=== PATIENT | female | born 1980 | race Caucasian/White ===

== ENCOUNTER 2017-09-22 16:49 | Outpatient (CLI) | payer OTHER ==
--- NOTE | 2017-09-22 17:36 | RAD ---
3 VIEWS LUMBAR SPINE: Date: 09/22/17 HISTORY: Low back pain. Fall from standing. FINDINGS: Grade II anterolisthesis of L5 upon S1. Associated spondylolysis. Five lumbar-type vertebral bodies. Lumbar spine vertebral body height is maintained. Disc space height is preserved. IMPRESSION: Spondylolisthesis and spondylolysis at L5-S1. POS: [facility]
== END 2017-09-22 16:50 | disposition home or self-care (01) ==
LOC: MADLABBHPM 16:49
PROVIDERS: ATTEND Family Medicine
DX: M47.27 Other spondylosis with radiculopathy, lumbosacral region (principal); M43.17 Spondylolisthesis, lumbosacral region; N89.8 Other specified noninflammatory disorders of vagina
CPT/HCPCS: 72100; 87480; 87510; 87660

== ENCOUNTER 2018-06-09 12:13 | Outpatient (CLI) | payer OTHER ==
--- NOTE | 2018-06-09 13:55 | ULT ---
PELVIC ULTRASOUND WITH DOPPLER: HISTORY: Irregular menses. Patient not on hormonal replacement or oral contraception medication. TECHNIQUE: Transabdominal, transvaginal, chery-scale, color-flow, and spectral Doppler. FINDINGS: The uterus measures 8.3 x 3 x 5 cm without focal mass or endometrial fluid. The endometrium measures 4 mm in thickness. The right ovary measures 3.7 x 1.7 x 1.6 cm, and the left ovary measures 3.1 x 1.3 x 1.7 cm. No adne xal mass or free fluid in the cul-de-sac is seen. Flow is demonstrated to both ovaries. IMPRESSION: Normal examination. POS: [facility]
== END 2018-06-09 12:14 | disposition home or self-care (01) ==
LOC: MADRAD 12:13
PROVIDERS: ATTEND Family Medicine
DX: N92.6 Irregular menstruation, unspecified (principal)
CPT/HCPCS: 76856